=== PATIENT | male | born 2005 | race Caucasian/White ===

== ENCOUNTER 2023-05-26 23:34 | Emergency (ER) | payer OTHER ==
[~2023-05-26] VITALS: Ht 182.9 cm; Wt 69.0 kg
[2023-05-26 23:41] VITALS: O2SAT 97
[2023-05-27] MEDS ORDERED: DIPHENHYDRAMINE 50MG CAPSULE PO ONE (00:30)
[2023-05-27] MEDS ORDERED: IBUPROFEN 800MG TABLET PO ONE (00:30)
[2023-05-27] MEDS ORDERED: ACETAMINOPHEN 325MG TABLET PO ONE (00:30)
[2023-05-27] MEDS ORDERED: IBUPROFEN 400MG TABLET PO NR (00:45)
[2023-05-27] MEDS ORDERED: DIPHENHYDRAMINE 25MG CAPSULE PO NR (00:45)
[2023-05-27 00:49] VITALS: BP 98/49; PULSE 70; RESP 18; TEMP 98.4
== END 2023-05-27 01:35 | disposition home or self-care (01) ==
LOC: ER 23:34
DX: F41.1 Generalized anxiety disorder (principal); R51.9 Headache, unspecified
CPT/HCPCS: 99284; Q0163